=== PATIENT | male | born 1985 | race African-American/Black ===

== ENCOUNTER 2017-03-01 13:19 | Emergency (ER) | payer OTHER ==
[2017-03-01 13:33] VITALS: BMI 25.8
--- NOTE | 2017-03-01 14:33 | PDOC ---
Attending Attestation - Resident Resident Name: MarkMildred - ED Attending Attestation I have performed the following: I have examined & evaluated the patient, The case was reviewed & discussed with the resident, I agree w/resident's findings & plan, Exceptions are as noted - HPI HPI: 03/01/17 15:20 32yo M hx CP, nonverbal at BL p/w multiple episodes of vomiting x1 week a/w constipation. Pt had 1 small hard stool yesterday. History is limited since patient is non verbal. Pt is normally on dulcolax, maalox, milk of magnesia, nexium. PT was also given suppository and enema over the last day with no large bowel movement. - Physicial Exam PE: 03/01/17 15:22 GENERAL: Awake, alert, in no acute distress. Temp 100.2 HEAD: No signs of trauma LUNGS: Breath sounds equal, clear to auscultation bilaterally. No wheezes, and no crackles HEART: Regular rate and rhythm, normal S1 and S2, no murmurs, rubs or gallops ABDOMEN: mildly distended, grimaces when palpating diffusely NEUROLOGICAL: cranial nerves grossly intact, contracted in all extremities SKIN: Warm, Dry, normal turgor, no rashes or lesions noted. - Medical Decision Making 03/01/17 15:33 32-year-old male with a history of cerebral palsy, is nonverbal at baseline presents with constipation and multiple episodes of vomiting over the last week. He can is borderline febrile on presentation to 100.2. Exam with mild distention. We'll obtain CT to rule out obstruction. Also on the differential is fecal impaction versus ileus. 03/01/17 16:42 Patient has been signed out to be evening attending for further evaluation and management.
--- NOTE | 2017-03-01 14:42 | PDOC ---
History of Present Illness - General Chief Complaint: Nausea/Vomiting Stated Complaint: intermediate NAUSEA/VOMITING Time Seen by Provider: 03/01/17 14:05 History Source: Care Provider Exam Limitations: Other (nonverbal) - History of Present Illness Initial Comments: This is a 32 YOM with long-standing h/o constipation who presents with intermediate staff concerned for possible bowel obstruction. They state that he has had several episodes of vomiting over the past week with the most recent one being this morning. He has had decreased bowel movements over the past week as well, with one very small and hard bowel movement last night. This constipation is more severe than his normal baseline constipation and the caregivers have not hears him pass gas today. Per caregivers he has not seemed to be in any pain or distress. The patient himself cannot provide his medical history d/t severe cerebral palsy and nonverbal baseline status. He is on multiple laxatives and other GI medications for his chronic constipation. Past History - Past Medical History Allergies/Adverse Reactions: Allergies Allergy/AdvReac Type Severity Reaction Status Date / Time No Known Allergies Allergy Verified 03/01/17 13:26 Home Medications: Ambulatory Orders Calcium Citrate/Vitamin D3 [Calcium Citrate W-Vit D Tablet] 2 each PO BID #0 tablet 12/29/12 Docosahexanoic Acid/Epa [Fish Oil Softgel] 1 each PO DAILY #0 capsule 12/29/12 Magnesium Hydrox 2400MG/30Ml [Milk Of Magnesia] 15 ml PO Q48H #0 ml 12/29/12 Omeprazole Magnesium [Prilosec (OTC)] 20 mg PO DAILY #0 tablet. 12/29/12 Acetaminophen [Tylenol] 650 mg PO Q4H PRN 09/09/13 Cholecalciferol (Vitamin D3) [Vitamin D] 800 unit PO BID 09/09/13 Na Phos,M-B/Na Phos,Di-Ba [Fleet Enema] 118 ml RC DAILY PRN 09/09/13 Acetaminophen [Tylenol .Regular Strength -] 650 mg PO Q4H PRN #0 tablet Bisacodyl Suppository [Dulcolax Suppository -] 10 mg RC DAILY PRN #0 supp.rect 09/25/13 Calcium 500Mg/Vit-D 200 Units [Os-Froylan 500+D -] 2 combo PO BID #0 tablet Cholecalciferol (Vitamin D3) [Vitamin D -] 800 unit PO BID #0 tablet 09/25/13 Metoprolol Tartrate [Lopressor -] 25 mg PO TID #0 tablet 09/25/13 [place]-3 Acid Ethyl Esters [Lovaza -] 1 gm PO DAILY #0 cap 09/25/13 Oxycodone HCl/Acetaminophen [Percocet 5-325 mg Tablet] 2 combo PO Q2H PRN #0 tablet 09/25/13 Pantoprazole Sodium [Protonix -] 20 mg PO DAILY #0 tablet.ec 09/25/13 Sulfamethoxazole/Trimethoprim [Bactrim Ds -] 1 tab PO BID #20 tablet 03/01/17 COPD: No 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 - Suicide/Smoking/Psychosocial Hx Smoking Status: No Smoking History: Never smoked Number of Cigarettes Smoked Daily: 0 Information on smoking cessation initiated: No Hx Alcohol Use: No Drug/Substance Use Hx: No Substance Use Type: None Review of Systems - Review of Systems Able to Perform ROS?: No (nonverbal baseline) *Physical Exam - Vital Signs Last Vital Signs Temp Pulse Resp BP Pulse Ox 100.2 F H 66 18 125/79 99 03/01/17 13:26 03/01/17 13:26 03/01/17 13:26 03/01/17 13:26 03/01/17 13:26 - Physical Exam General Appearance: Yes: Nourished, Appropriately Dressed, Other (patient nonverbal, in wheelchair, moving BUE but not BLE, makes eye contact, does not follow commands, no vocalizations). No: Apparent Distress HEENT: positive: EOMI, SOLA, Hearing Grossly Normal. negative: Scleral Icterus (R), Scleral Icterus (L), Nasal Congestion Neck: positive: Tender, Trachea midline, Supple. negative: Rigid Respiratory/Chest: positive: Lungs Clear, Normal Breath Sounds. negative: Respiratory Distress, Crackles, Rhonchi, Stridor, Wheezing Cardiovascular: positive: Regular Rhythm, Regular Rate. negative: Murmur Gastrointestinal/Abdominal: positive: Normal Bowel Sounds, Flat, Soft. negative : Tender, Guarding Musculoskeletal: positive: Normal Inspection. negative: Decreased Range of Motion, Vertebral Tenderness Extremity: positive: Normal Capillary Refill, Normal Inspection, Normal Range of Motion. negative: Tender, Cyanosis Integumentary: positive: Normal Color, Dry, Warm. negative: Erythema, Rash, Bruising Neurologic: positive: Alert, Normal Mood/Affect, Other (patient unable to participate in detailed neurologic exam). negative: EOM Palsy ED Treatment Course - LABORATORY CBC & Chemistry Diagram: 03/01/17 16:00 03/01/17 16:00 - RADIOLOGY Radiology Studies Ordered: Category Date Time Status ABDOMEN FLAT & UPRIGHT [RAD] Stat Radiology 03/01/17 14:36 Ordered Medical Decision Making - Medical Decision Making 32 YOM with severe CP nonverbal at baseline p/w vomiting x1 week and low-grade fever. Care givers concerned for SBO as Pt struggles with chronic constipation and has not had significant BM x days. No obvious abdominal pain on exam, no other obvious acute findings. DDX IBNLT SBO, cholecystitis, appendicitis, UTI/pyelo, etc. Ordered is CBCD, CMP, abdominal xray flat & upright, will hold off on UA now as Pt would need cath. Lab workup negative so far. XR negative for e/o SBO. Will order CT abdomen/pelvis IV+PO contrast. CT abdomen/pelvis shows possible bladder wall thickening. Given this finding and low grade fever will empirically tx for UTI/pyelo. PO Bactrim given here in the ED. E-Rx sent to pharmacy. Pt discharged with care givers after return precautions discussed. *DC/Admit/Observation/Transfer Diagnosis at time of Disposition: UTI (urinary tract infection) Qualifiers: Urinary tract infection type: site unspecified Hematuria presence: without hematuria Qualified Code(s): N39.0 - Urinary tract infection, site not specified - Discharge Dispostion Disposition: HOME Condition at time of disposition: Stable Admit: No - Prescriptions Prescriptions: Sulfamethoxazole/Trimethoprim [Bactrim Ds -] 1 tab PO BID #20 tablet - Referrals Referrals: Garry Singh Jr [Primary Care Provider] - - Patient Instructions Additional Instructions: aDlton was seen in the ER for vomiting and constipation, found with low-grade fever here in the ER. We did basic blood lab work, an x-ray of the abdomen, and a CT scan of the abdomen which showed some evidence of a bladder infection (UTI) . We gave him a dose of antibiotic here in the ER and we are sending a prescription to your pharmacy for a full course of Bactrim (the same antibiotic) . Please have Dalton take the entire course of antibiotic. Follow up with his primary provider, or come back to the ER for any new or worsening symptoms like worsening pain, high fever you cannot control with [id number] medications , passing out, inability to urinate or have a bowel movement, or other symptoms. - Post Discharge Activity
[2017-03-01] MEDS ORDERED: IOHEXOL 180 MG/1 ML ML IT ONE (15:39)
[2017-03-01 16:34] LABS: BASOPHIL 0.4 % (0-2.0); EOSINOPHIL 1.4 % (0-4.5); MCH 25.3 pg (25.7-33.7); MCHC 32.2 g/dl (32.0-35.9); MEAN CELL VOLUME 78.6 fl (80-96); MEAN PLT VOLUME 9.5 fl (7.5-11.1); NEUTROPHILS 69.8 % (42.8-82.8); PLATELET COUNT 255 K/MM3 (134-434); RDW 18.5 % (11.9-15.9); WHITE BLOOD COUNT 7.8 K/mm3 (4.0-10.0)
[2017-03-01 18:01] LABS: ALBUMIN 3.8 g/dl (3.4-5.0); ALK PHOS 131 U/L (45-117); ANION GAP 7 (8-16); BILIRUBIN,TOTAL 0.3 mg/dL (0.2-1.0); CALCIUM 8.4 mg/dL (8.5-10.1); CO2 26 mmol/L (21-32); CREATININE 0.7 mg/dL (0.7-1.3); GLUCOSE,RANDOM 85 mg/dL (74-106); MAGNESIUM 2.2 mg/dL (1.8-2.4); PHOSPHOROUS 3.4 mg/dL (2.5-4.9); SGOT/AST 12 U/L (15-37); SGPT/ALT 24 U/L (12-78); TOT PROT 6.9 g/dl (6.4-8.2)
[2017-03-01] MEDS ORDERED: SULFAMETHOXAZOLE/TRIMETHOPRIM 800MG/160MG D.S. TABLET PO ONE (19:50)
[2017-03-01] MEDS ORDERED: SULFAMETHOXAZOLE/TRIMETHOPRIM 800MG/160MG D.S. TABLET ONE (19:55)
[2017-03-01 20:34] VITALS: BP 124/78; PULSE 84; TEMP 100
== END 2017-03-01 20:34 | disposition home or self-care (01) ==
LOC: JER 13:19
DX: N39.0 Urinary tract infection, site not specified (principal); G80.8 Other cerebral palsy; F79 Unspecified intellectual disabilities; K21.9 Gastro-esophageal reflux disease without esophagitis; Q65.02 Congenital dislocation of left hip, unilateral
CPT/HCPCS: 36415; 74020-TC; 74177-TC; 80053; 83690; 83735; 84100; 85025; 99282-25

== ENCOUNTER 2017-03-18 17:32 | Emergency (ER) | payer OTHER ==
--- NOTE | 2017-03-18 17:40 | PDOC ---
Rapid Medical Evaluation Time Seen by Provider: 03/18/17 17:35 Medical Evaluation: Allergies Allergy/AdvReac Type Severity Reaction Status Date / Time No Known Allergies Allergy Verified 03/01/17 13:26 03/18/17 17:36 I have performed a brief in-person evaluation of this patient. The patient presents with a chief complaint of: Resident of [facility], BIB welt insole channeler for n/v x 1 week. H/o MR, s/p recent abx (bactrim) course for UTI Pertinent physical exam findings: T of 99.2 oral and tachy to 119 I have ordered the following:cbc/chem The patient will proceed to the ED for further evaluation.
[2017-03-18 17:41] VITALS: BP 128/60; BMI 26.4
[2017-03-18 18:20] LABS: BASOPHIL 0.7 % (0-2.0); EOSINOPHIL 0.9 % (0-4.5); MCH 25.5 pg (25.7-33.7); MCHC 32.6 g/dl (32.0-35.9); MEAN CELL VOLUME 78.2 fl (80-96); MEAN PLT VOLUME 9.4 fl (7.5-11.1); PLATELET COUNT 257 K/MM3 (134-434); RDW 18.4 % (11.9-15.9); WHITE BLOOD COUNT 11.1 K/mm3 (4.0-10.0)
[2017-03-18 18:41] LABS: ALBUMIN 4.3 g/dl (3.4-5.0); ANION GAP 12 (8-16); BILIRUBIN,TOTAL 0.3 mg/dL (0.2-1.0); CALCIUM 9.6 mg/dL (8.5-10.1); CO2 25 mmol/L (21-32); CREATININE 1.3 mg/dL (0.7-1.3); GLUCOSE,RANDOM 75 mg/dL (74-106); SGOT/AST 16 U/L (15-37); SGPT/ALT 37 U/L (12-78); TOT PROT 7.9 g/dl (6.4-8.2)
[2017-03-18 18:42] LABS: ALK PHOS 151 U/L (45-117)
--- NOTE | 2017-03-18 19:59 | PDOC ---
History of Present Illness - General Chief Complaint: Nausea/Vomiting Stated Complaint: VOMITING Time Seen by Provider: 03/18/17 17:35 History Source: Care Provider Exam Limitations: No Limitations - History of Present Illness Initial Comments: This is a 32 YOM with h/o severe cerebral palsy (nonverbal at baseline), recent UTI (seen here in the ED and tx with Bactrim on 03/01/17, completed 10-day course), and long-standing constipation (uses multiple laxatives including milk of magnesia) who presents with senior living guest relations representative who is concerned that he has been vomiting more and more over the past 2-3 weeks. They state that he has had several episodes of vomiting per day. It started out with him vomiting after eating, but has progressed to also vomiting between meals (non-bilious phlegm). He has had decreased bowel movements over the past week as well, with small and hard bowel movements but normal gas passage. Per caregivers he has not seemed to be in any pain or distress. Past History - Past Medical History Allergies/Adverse Reactions: Allergies Allergy/AdvReac Type Severity Reaction Status Date / Time No Known Allergies Allergy Verified 03/18/17 17:42 Home Medications: Ambulatory Orders Calcium Citrate/Vitamin D3 [Calcium Citrate W-Vit D Tablet] 2 each PO BID #0 tablet 12/29/12 Docosahexanoic Acid/Epa [Fish Oil Softgel] 1 each PO DAILY #0 capsule 12/29/12 Magnesium Hydrox 2400MG/30Ml [Milk Of Magnesia] 15 ml PO Q48H #0 ml 12/29/12 Na Phos,M-B/Na Phos,Di-Ba [Fleet Enema] 118 ml RC DAILY PRN 09/09/13 Calcium 500Mg/Vit-D 200 Units [Os-Froylan 500+D -] 2 combo PO BID #0 tablet Cholecalciferol (Vitamin D3) [Vitamin D -] 800 unit PO BID #0 tablet 09/25/13 [place]-3 Acid Ethyl Esters [Lovaza -] 1 gm PO DAILY #0 cap 09/25/13 Esomeprazole Magnesium [Nexium 24Hr] 20 mg PO DAILY #30 tablet. 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 No: Fever, Unexplained wgt Loss HEENTM: No: Nose Congestion, Throat Pain Respiratory: No: Cough, Shortness of Breath Cardiac (ROS): No: Chest Pain, Palpitations ABD/GI: Yes: Constipated, Vomiting. No: Diarrhea : No: Discharge, Frequency, Hematuria, Testicular Swelling Musculoskeletal: No: Back Pain, Neck Pain Integumentary: No: Bruising, Rash Neurological: No: Seizure, Weakness Endocrine: No: Unexplained Weight Gain, Unexplained Weight Loss *Physical Exam - Vital Signs Last Vital Signs Temp Pulse Resp BP Pulse Ox 99.2 F 118 H 16 128/60 100 03/18/17 17:38 03/18/17 17:38 03/18/17 17:38 03/18/17 17:38 03/18/17 17:38 - Physical Exam General Appearance: Yes: Nourished, Appropriately Dressed, Other (wheelchair- bound adult male who is nonverbal but tried to communicate with snapping and clapping, accompanied by senior living rep who provides his medical history). No: Apparent Distress HEENT: positive: EOMI, Hearing Grossly Normal. negative: Scleral Icterus (R), Scleral Icterus (L), Nasal Congestion Neck: positive: Trachea midline, Supple. negative: Tender, Rigid Respiratory/Chest: positive: Lungs Clear, Normal Breath Sounds. negative: Respiratory Distress, Crackles, Rhonchi, Stridor, Wheezing Cardiovascular: positive: Regular Rhythm, Tachycardia. negative: Murmur Gastrointestinal/Abdominal: positive: Soft, Decreased BS. negative: Tender, Organomegaly, Pulsatile Mass, Guarding Musculoskeletal: positive: Other (chronic muscle atrophy BLE, RLE in boot). negative: Decreased Range of Motion, Vertebral Tenderness Extremity: positive: Normal Capillary Refill, Normal Inspection, Normal Range of Motion. negative: Tender, Cyanosis Integumentary: positive: Normal Color, Dry, Warm. negative: Erythema, Rash, Bruising Neurologic: positive: Alert, Normal Mood/Affect, Normal Response, Motor Strength 5/5, Responsive. negative: EOM Palsy, Facial Droop ED Treatment Course - LABORATORY CBC & Chemistry Diagram: 03/18/17 20:55 03/18/17 20:55 - ADDITIONAL ORDERS Additional order review: Laboratory Results 03/18/17 17:45 Sodium 139 Potassium 4.3 Chloride 102 Carbon Dioxide 25 Anion Gap 12 BUN 14 D Creatinine 1.3 D Creat Clearance w eGFR > 60 Random Glucose 75 Calcium 9.6 Total Bilirubin 0.3 AST 16 D ALT 37 D Alkaline Phosphatase 151 H Total Protein 7.9 Albumin 4.3 Lipase 323 03/18/17 17:45 RBC 5.65 H MCV 78.2 L MCHC 32.6 RDW 18.4 H MPV 9.4 Neutrophils % 70.0 Lymphocytes % 18.6 Monocytes % 9.8 Eosinophils % 0.9 Basophils % 0.7 Medical Decision Making - Medical Decision Making 32 YOM with CP, chronic constipation, recent UTI tx with Bactim p/w increasing vomiting, non-bilious non-projectile. On exam he is tachycardic, afebrile, no distress, interactive, no abdominal ttp , hypoactive bowel sounds. DDX IBNLT SBO, IBS, gastroenteritis, other infection (i.e. UTI, PNA anabella. aspiration PNA). Ordered is CBCD, CMP, Mg, Phos, UA cx, abd flat & upright XR. 03/19/17 01:26 Abdominal x-ray notable for large amount of stool within the bowel. Laboratories result notable for alk phos which is elevated but has been higher for the patient in past EMR. Initially attempt is made to straight cath but this yields no urine return. Subsequent bladder US notable for 150cc urine in the bladder. The patient is appropriate for DC back home with caregiver. Return precautions are discussed. E-Rx written for Fleets enemas and Nexium. GI doctor referral info given. *DC/Admit/Observation/Transfer Diagnosis at time of Disposition: Vomiting Qualifiers: Vomiting type: unspecified Vomiting Intractability: non-intractable Nausea presence: unspecified Qualified Code(s): R11.10 - Vomiting, unspecified Constipation Qualifiers: Constipation type: chronic idiopathic constipation Qualified Code(s): K59.04 - Chronic idiopathic constipation - Discharge Dispostion Disposition: HOME Condition at time of disposition: Stable Admit: No - Prescriptions Prescriptions: Esomeprazole Magnesium [Nexium 24Hr] 20 mg PO DAILY #30 tablet. Sodium Phosphate/Na Biphos [Fleet Adult Rectal Enema] 133 ml RC ONCE #1 enema - Referrals Referrals: Edwin Ruth MD [Staff Physician] - - Patient Instructions Printed Discharge Instructions: DI for Vomiting -- Adult Additional Instructions: Dalton was seen in the ER for vomiting and constipation. We did basic laboratory work and an abdominal x-ray. There were no abnormal findings on his lab work, and the x-ray shows constipation. We are prescribing Fleets enemas and Nexium. The Fleets enema will help with the constipation and the Nexium should help with the vomiting. Please follow up with a GI doctor to talk about his ongoing constipation. Also follow up with his PCP or return here to the ER for any new or worsening symptoms. - Post Discharge Activity
[2017-03-18] MEDS ORDERED: ONDANSETRON 4 MG/2 ML VIAL IVPUSH ONE (20:05)
[2017-03-18] MEDS ORDERED: MAG HYDROX/AL HYDROX/SIMETH 30 ML UNIT-DOSE CUP PO ONE (20:06)
[2017-03-18] MEDS ORDERED: SODIUM CHLORIDE 1,000 ML IV STA (20:06)
[2017-03-18] MEDS ORDERED: FAMOTIDINE 20 MG/50 ML IVPB 20 MG/50 ML MG IVPB ONE ×2 (20:15→20:29)
[2017-03-18] MEDS ORDERED: ONDANSETRON 4 MG/2 ML VIAL ONE (20:29)
[2017-03-18] MEDS ORDERED: MAG HYDROX/AL HYDROX/SIMETH 30 ML UNIT-DOSE CUP ONE (20:29)
[2017-03-18 21:16] LABS: BASOPHIL 0.7 % (0-2.0); EOSINOPHIL 1.1 % (0-4.5); MCH 26.1 pg (25.7-33.7); MCHC 33.7 g/dl (32.0-35.9); MEAN CELL VOLUME 77.6 fl (80-96); MEAN PLT VOLUME 9.1 fl (7.5-11.1); NEUTROPHILS 68.6 % (42.8-82.8); PLATELET COUNT 219 K/MM3 (134-434); RDW 18.6 % (11.9-15.9)
[2017-03-18 22:00] LABS: ALBUMIN 3.5 g/dl (3.4-5.0); ANION GAP 8 (8-16); CALCIUM 8.5 mg/dL (8.5-10.1); CO2 24 mmol/L (21-32); CREATININE 0.9 mg/dL (0.7-1.3); GLUCOSE,RANDOM 84 mg/dL (74-106); SGOT/AST 12 U/L (15-37); SGPT/ALT 33 U/L (12-78)
[2017-03-18 22:02] LABS: ALK PHOS 130 U/L (45-117); BILIRUBIN,TOTAL 0.4 mg/dL (0.2-1.0); TOT PROT 6.8 g/dl (6.4-8.2)
--- NOTE | 2017-03-18 22:02 | PDOC ---
Attending Attestation - Resident Resident Name: Mildred Flores - ED Attending Attestation I have performed the following: I have examined & evaluated the patient, The case was reviewed & discussed with the resident, I agree w/resident's findings & plan, Exceptions are as noted - HPI HPI: 03/18/17 21:56 32 M with h/o severe cerebral palsy (nonverbal at baseline), recent UTI (seen here in the ED and tx with Bactrim on 03/01/17, completed 10-day course), and long-standing constipation, presenting to ER with intermittent nausea and vomiting x 2 weeks. Per engine setter, pt has occasional vomiting at baseline. Over the past 2 weeks, since he was started on the Bactrim, this has increased in frequency. He estimates that pt vomits 2 out of every 3 days. He had one episode of vomiting yesterday. Pt also has chronic constipation which has not changed since baseline. Last BM was last night. [place] denies any new abdominal distention. No fevers. Pt has completed his course of bactrim. - Physicial Exam PE: 03/18/17 21:59 "GENERAL: Awake, alert, in no acute distress HEAD: No signs of trauma EYES: PERRLA, EOMI, sclera anicteric, conjunctiva clear ENT: Auricles normal inspection, hearing grossly normal, nares patent, oropharynx clear without exudates. Moist mucosa NECK: Nontender, no stepoffs, Normal ROM, supple, no lymphadenopathy, JVD, or masses LUNGS: Breath sounds equal, clear to auscultation bilaterally. No wheezes, and no crackles HEART: Regular rate and rhythm, normal S1 and S2, no murmurs, rubs or gallops ABDOMEN: Soft, +epigastric tenderness, normoactive bowel sounds. No guarding, no rebound. No masses EXTREMITIES: Normal range of motion, no edema. No clubbing or cyanosis. No cords, erythema, or tenderness NEUROLOGICAL: Cranial nerves II through XII intact. SKIN: Warm, Dry, normal turgor, no rashes or lesions noted. " - Medical Decision Making 03/18/17 22:00 32 M with intermittent N/V, increased in frequency over past 2 weeks. Possible gastritis related to recent antibiotic use. Pt with epigastric TTP but otherwise benign abdomen. No evidence of obstruction clinically. - Labs - Upright abdominal XR - GI cocktail 03/18/17 23:38 XR with no air-fluid levels to suggest obstruction Pt with unremarkable labs Upon re-evaluation, pt tolerating PO without nausea or vomiting. Vitals normal, pt well appearing. Clinically stable for DC.
[2017-03-19 01:44] VITALS: PULSE 90; TEMP 98.4
== END 2017-03-19 01:46 | disposition home or self-care (01) ==
LOC: JER 17:32
PROC: 3E033GC Introduction of Other Therapeutic Substance into Peripheral Vein, Percutaneous Approach (ICD-10-PCS; principal; 2017-03-18)
PROC: 3E0337Z Introduction of Electrolytic and Water Balance Substance into Peripheral Vein, Percutaneous Approach (ICD-10-PCS; 2017-03-18)
DX: R11.10 Vomiting, unspecified (principal); G80.9 Cerebral palsy, unspecified
CPT/HCPCS: 36415; 74020-TC; 80053; 83690; 83735; 85025; 96361; 96365; 96375; 99282-25

== ENCOUNTER 2017-08-06 19:17 | Emergency (ER) | payer OTHER ==
[2017-08-06 19:27] VITALS: BMI 26.2
--- NOTE | 2017-08-06 20:37 | PDOC ---
History of Present Illness - General History Source: Care Provider Exam Limitations: No Limitations - History of Present Illness Initial Comments: 08/06/17 22:50 Patient is a 32 year old male with a significant past medical history of Cerebral Palsy, who was brought to the ED with complaints of fever that began earlier today. As per aid, patient began to experiencing multiple episodes of vomiting yesterday afternoon as well as increased crying. He reports patient experiencing gradual increase fever, stating that the facility nurse came to assess the patient, who then advised patient go to the ED for further evaluation. As per aid, patient was actively vomiting and coughing while in the ED waiting room. As per facility staff: Denies change in appetite, change in diet. Denies contact with sick individuals, out of state traveling. Denies diarrhea, constipation, hematuria. Denies any other symptoms. Allergies: No allergies. Social history: No smoking. No alcohol. No illicit drugs. 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,orchiopexy,) Other medical history: cerebral palsy, Mental Retardation - Suicide/Smoking/Psychosocial Hx Smoking Status: No Smoking History: Never smoked Number of Cigarettes Smoked Daily: 0 Information on smoking cessation initiated: No Hx Alcohol Use: No Drug/Substance Use Hx: No Substance Use Type: None <Disha Allison - Last Filed: 08/06/17 23:03> - Past Medical History Allergies/Adverse Reactions: Allergies Allergy/AdvReac Type Severity Reaction Status Date / Time No Known Allergies Allergy Verified 08/06/17 19:21 Home Medications: Ambulatory Orders Calcium Citrate/Vitamin D3 [Calcium Citrate W-Vit D Tablet] 2 each PO BID #0 tablet 12/29/12 Docosahexanoic Acid/Epa [Fish Oil Softgel] 1 each PO DAILY #0 capsule 12/29/12 Magnesium Hydrox 2400MG/30Ml [Milk Of Magnesia] 15 ml PO Q48H #0 ml 12/29/12 Na Phos,M-B/Na Phos,Di-Ba [Fleet Enema] 118 ml RC DAILY PRN 09/09/13 Calcium 500Mg/Vit-D 200 Units [Os-Froylan 500+D -] 2 combo PO BID #0 tablet Sodium Phosphate/Na Biphos [Fleet Adult Rectal Enema] 133 ml RC ONCE #1 enema Acetaminophen [Tylenol] 325 mg PO ASDIR PRN 08/06/17 Bisacodyl Suppository [Dulcolax Suppository -] 10 mg RC DAILY PRN 08/06/17 Levofloxacin [Levaquin] 500 mg PO DAILY #7 tablet 08/06/17 Omeprazole Magnesium [Prilosec Otc] 40 mg PO ASDIR 08/06/17 Review of Systems - Review of Systems Able to Perform ROS?: Yes Comments:: 08/06/17 22:50 GENERAL/CONSTITUTIONAL: +Fever No chills. No weakness. HEAD, EYES, EARS, NOSE AND THROAT: +Runny nose. No change in vision. No ear pain or discharge. No sore throat. CARDIOVASCULAR: No chest pain or shortness of breath. RESPIRATORY: No cough, wheezing, or hemoptysis. GASTROINTESTINAL: +vomiting. No nausea, diarrhea or constipation. GENITOURINARY: No dysuria, frequency, or change in urination. MUSCULOSKELETAL: No joint or muscle swelling or pain. No neck or back pain. SKIN: No rash NEUROLOGIC: No headache, vertigo, loss of consciousness, or change in strength/ sensation. ENDOCRINE: No increased thirst. No abnormal weight change. HEMATOLOGIC/LYMPHATIC: No anemia, easy bleeding, or history of blood clots. ALLERGIC/IMMUNOLOGIC: No hives or skin allergy. <South Ortiz - Last Filed: 08/06/17 22:50> *Physical Exam - Vital Signs Last Vital Signs Temp Pulse Resp BP Pulse Ox 100.0 F H 93 H 18 119/73 96 08/06/17 19:22 08/06/17 19:22 08/06/17 19:22 08/06/17 19:22 08/06/17 19:22 - Physical Exam Comments: 08/06/17 22:51 GENERAL: +Cerebral Palsy. Awake, alert, and fully oriented, in no acute distress HEAD: No signs of trauma EYES: PERRLA, EOMI, sclera anicteric, conjunctiva clear ENT: +Prominent Epiglottis. Auricles normal inspection, hearing grossly normal, nares patent, oropharynx clear without exudates. Moist mucosa NECK: Normal ROM, supple, no lymphadenopathy, JVD, or masses LUNGS: Breath sounds equal, clear to auscultation bilaterally. No wheezes, and no crackles HEART: +Tachycardic normal S1 and S2, no murmurs, rubs or gallops ABDOMEN: Soft, nontender, normoactive bowel sounds. No guarding, no rebound. No masses EXTREMITIES: Normal range of motion, no edema. No clubbing or cyanosis. No cords, erythema, or tenderness NEUROLOGICAL: Cranial nerves II through XII grossly intact. Normal speech, normal gait SKIN: Warm, Dry, normal turgor, no rashes or lesions noted. <South Ortiz - Last Filed: 08/06/17 22:50> - Vital Signs Last Vital Signs Temp Pulse Resp BP Pulse Ox 100.0 F H 93 H 18 119/73 96 08/06/17 19:22 08/06/17 19:22 08/06/17 19:22 08/06/17 19:22 08/06/17 19:22 <Disha Allison - Last Filed: 08/06/17 23:03> ED Treatment Course - LABORATORY CBC & Chemistry Diagram: 08/06/17 21:10 08/06/17 21:10 - ADDITIONAL ORDERS Additional order review: Laboratory Results 08/06/17 08/06/17 Unknown 21:10 Sodium 139 Potassium 3.8 Chloride 105 Carbon Dioxide 29 D Anion Gap 5 L BUN 12 Creatinine 1.1 D Creat Clearance w eGFR > 60 Random Glucose 109 H D Calcium 8.1 L Total Bilirubin 0.2 D AST 17 D ALT 27 Alkaline Phosphatase 124 H Total Protein 7.2 Albumin 3.5 Lipase 337 Urine Color Yellow Urine Appearance Cloudy Urine pH 7.0 Ur Specific Crockett 1.019 Urine Protein Negative Urine Glucose (UA) Negative Urine Ketones Negative Urine Blood 1+ H Urine Nitrite Positive Urine Bilirubin Negative Urine Urobilinogen Negative Ur Leukocyte Esterase 3+ H Urine WBC (Auto) 30 Urine RBC (Auto) 29 Urine Mucus Rare 08/06/17 21:00 Group A Strep Rapid Antigen - Final Throat 08/06/17 21:10 RBC 5.08 MCV 80.1 MCHC 33.8 RDW 16.4 H D MPV 9.3 Neutrophils % No Result Required. Lymphocytes % No Result Required. - Medications Given in the ED: ED Medications Discontinued Medications Generic Name Dose Route Start Last Admin Trade Name Lianne PRN Reason Stop Dose Admin Acetaminophen 1,000 mg 08/06/17 20:54 08/06/17 21:22 Ofirmev Injection - IVPB 08/06/17 20:55 1,000 mg ONCE ONE Administration Sodium Chloride 1,000 ml 08/06/17 20:54 08/06/17 21:22 Normal Saline - IV 08/06/17 20:55 1,000 ml ONCE ONE Administration Sodium Chloride 1,000 ml 08/06/17 22:19 08/06/17 22:31 Normal Saline - IV 08/06/17 22:20 1,000 ml ONCE ONE Administration <South Ortiz - Last Filed: 08/06/17 22:50> - LABORATORY CBC & Chemistry Diagram: 08/06/17 21:10 08/06/17 21:10 <Disha Allison - Last Filed: 08/06/17 23:03> Medical Decision Making - Medical Decision Making 08/06/17 21:20 Pt with cerebral palsy. Comes with crying and vomiting and fever at the [facility] home. He was given antipyretics there, his application architect manager cannot tell me exactly which antipyretic and at what time. Pt has no discomfort in the ER, but he seems to be spitting up. Lungs sound clear and heart rate is tachy. Pt has normal flank exam and abd exam. No tederness with deep palpation. Pt will have a UA sent. Pt will also be hydrated, as he may have lost a lot of fluids while vomiting. [facility]. He has had viral gastroenteritis in the past. 08/06/17 22:19 Coude straight cath placed by myself; we were able to get some urine and send the sample to the lab. Pt will be hydrated with another L of NSS. 08/06/17 23:02 Pt has a nitrite positive urine. He will be treated with levaquin and sent home with 7 days of levaquin. <Disha Allison - Last Filed: 08/06/17 23:03> *DC/Admit/Observation/Transfer - Attestations Scribe Attestion: 08/06/17 22:51 Documentation prepared by South Ortiz, acting as anesthesiology medical doctor for Disha Allison MD/DO. <South Ortiz - Last Filed: 08/06/17 22:50> - Discharge Dispostion Admit: No <Disha Allison - Last Filed: 08/06/17 23:03> Diagnosis at time of Disposition: UTI (urinary tract infection) - Discharge Dispostion Disposition: HOME Condition at time of disposition: Stable - Prescriptions Prescriptions: Levofloxacin [Levaquin] 500 mg PO DAILY #7 tablet - Patient Instructions Printed Discharge Instructions: Urinary Tract Infection
[2017-08-06] MEDS ORDERED: SODIUM CHLORIDE 0.9% 500 ML INFUS.BAG IV ONE ×2 (20:54→22:19)
[2017-08-06] MEDS ORDERED: ACETAMINOPHEN 1000 MG/100 ML VIAL (NON FORMULARY) IVPB ONE (20:54)
[2017-08-06 21:17] LABS: HEMATOCRIT 40.7 % (35.4-49); HEMOGLOBIN 13.7 GM/dL (11.7-16.9); MCHC 33.8 g/dl (32.0-35.9); MEAN CELL VOLUME 80.1 fl (80-96); MEAN PLT VOLUME 9.3 fl (7.5-11.1); PLATELET COUNT 168 K/MM3 (134-434); RBC 5.08 M/mm3 (4.00-5.60); RDW 16.4 % (11.9-15.9); WHITE BLOOD COUNT 6.8 K/mm3 (4.0-10.0)
[2017-08-06] MEDS ORDERED: ACETAMINOPHEN INJECTION 100 ML IVPB ONE (21:17)
[2017-08-06 21:42] LABS: ALBUMIN 3.5 g/dl (3.4-5.0); ANION GAP 5 (8-16); BILIRUBIN,TOTAL 0.2 mg/dL (0.2-1.0); BLOOD UREA NITROGEN 12 mg/dL (7-18); CALCIUM 8.1 mg/dL (8.5-10.1); CHLORIDE 105 mmol/L (98-107); CO2 29 mmol/L (21-32); CREATININE 1.1 mg/dL (0.7-1.3); GLUCOSE,RANDOM 109 mg/dL (74-106); POTASSIUM 3.8 mmol/L (3.5-5.1); SGOT/AST 17 U/L (15-37); SGPT/ALT 27 U/L (12-78); SODIUM 139 mmol/L (136-145); TOT PROT 7.2 g/dl (6.4-8.2)
[2017-08-06 21:43] LABS: ALK PHOS 124 U/L (45-117)
[2017-08-06 21:50] LABS: LIPASE 337 U/L (73-393)
[2017-08-06 21:56] LABS: ANISOCYTOSIS 1+; MACROCYTOSIS 1+
[2017-08-06 21:57] LABS: OVALOCYTE 1+; PLATELET ESTIMATE ADEQUATE
[2017-08-06 22:26] LABS: URINE APPEARANCE CLOUDY; URINE BILIRUBIN NEGATIVE (<2.0 mg/dL); URINE BLOOD 1+ (NEGATIVE); URINE COLOR YELLOW; URINE GLUCOSE (UA) NEGATIVE (NEGATIVE); URINE KETONE NEGATIVE (NEGATIVE); URINE NITRITE POSITIVE (NEGATIVE); URINE PROTEIN NEGATIVE (NEGATIVE); URINE UROBILINOGEN NEGATIVE mg/dL (0.2-1.0)
[2017-08-06 22:27] LABS: URINE LEUK ESTERASE 3+ (NEGATIVE)
[2017-08-06 22:36] LABS: URINE MUCUS RARE
[2017-08-07 00:37] VITALS: BP 120/80; PULSE 100; TEMP 99
[2017-08-07] MEDS ORDERED: METOCLOPRAMIDE HCL INJECTION 10 MG/2 ML VIAL ONE (01:16)
--- NOTE | 2017-08-09 07:24 | PDOC ---
Patient Follow-up (Call Back) - Post ED Follow - Up Condition at time of discharge: Stable Disposition at time of original discharge: HOME Reason for Call Back: Abnwl. Microbiology (Patient currently on Levaquin. Urine culture on preliminarily shows pending organism 1 and 2. Will await final report.)
--- NOTE | 2017-08-11 07:56 | PDOC ---
Patient Follow-up (Call Back) - Post ED Follow - Up Condition at time of discharge: Stable Disposition at time of original discharge: HOME Reason for Call Back: Abnwl. Microbiology (Patient's urine shows Providencia which is not susceptible to sensitive to Levaquin. Patient be placed on Bactrim. Called and spoke to patient and will send to [facility] pharmacy. Staff aware and will tell nurse.)
== END 2017-08-07 00:53 | disposition home or self-care (01) ==
LOC: JER 19:17
PROC: 3E03329 Introduction of Other Anti-infective into Peripheral Vein, Percutaneous Approach (ICD-10-PCS; principal; 2017-08-06)
PROC: 3E033NZ Introduction of Analgesics, Hypnotics, Sedatives into Peripheral Vein, Percutaneous Approach (ICD-10-PCS; 2017-08-06)
DX: N39.0 Urinary tract infection, site not specified (principal); G80.8 Other cerebral palsy; F79 Unspecified intellectual disabilities; H52.10 Myopia, unspecified eye
CPT/HCPCS: 36415; 80053; 81003; 81015; 83690; 85025; 87070; 87086; 87186; 87430; 96365; 96375; 99283-25; J0131

== ENCOUNTER 2024-02-13 11:58 | Emergency (ER) | payer OTHER ==
[2024-02-13 12:17] VITALS: RESP 24; BMI 23.2
[2024-02-13 12:25] VITALS: TEMP 99
[2024-02-13 14:30] LABS: BASO % 0.3 % (0-2.0); EOS % 0.5 % (0-4.5); HEMATOCRIT 43.1 % (35.4-49); HEMOGLOBIN 14.3 GM/dL (11.7-16.9); LYMPH % 5.6 % (8-40); MCH 28.5 pg (25.7-33.7); MCHC 33.3 g/dl (32.0-35.9); MEAN CELL VOLUME 85.7 fl (80-96); MEAN PLT VOLUME 9.5 fl (7.5-11.1); NEUT % 83.6 % (42.8-82.8); PLATELET COUNT 150 10^3/uL (134-434); RBC 5.03 M/mm3 (4.00-5.60); RDW 13.2 % (11.9-15.9); WHITE BLOOD COUNT 8.8 K/mm3 (4.0-10.0)
[2024-02-13 15:15] LABS: CHLORIDE 114 mmol/L (98-107); SODIUM 143 mmol/L (136-145)
[2024-02-13 15:23] LABS: ALBUMIN 2.5 g/dl (3.4-5.0); ANION GAP 5 mmol/L (4-13); BLOOD UREA NITROGEN 8.4 mg/dL (7-18); CO2 24 mmol/L (21-32); GLUCOSE,RANDOM 59 mg/dL (74-106)
[2024-02-13 15:25] LABS: SGPT/ALT 16 U/L (13-61)
[2024-02-13 15:26] LABS: BILIRUBIN,TOTAL 0.4 mg/dL (0.2-1); CREATININE 0.6 mg/dL (0.55-1.3); SGOT/AST 18 U/L (15-37)
[2024-02-13 15:27] LABS: ALK PHOS 53 U/L (45-117)
[2024-02-13 15:37] LABS: CALCIUM 6.9 mg/dL (8.5-10.1)
[2024-02-13 18:44] VITALS: BP 128/95; PULSE 138
== END 2024-02-13 18:59 | disposition home or self-care (01) ==
LOC: JER 11:58
DX: J10.1 Influenza due to other identified influenza virus with other respiratory manifestations (principal); R50.9 Fever, unspecified; Z20.822 Contact with and (suspected) exposure to COVID-19
CPT/HCPCS: 0241U-QW; 36415; 71045-TC-FY; 80053; 85025; 99284-25